=== PATIENT | female | born 1980 | race Two or more races ===

== ENCOUNTER 2017-10-06 08:30 | Outpatient (CLI) | payer OTHER ==
[~2017-10-06 08:30] MED LIST: PRENATAL1 TAB
== END 2017-10-06 08:40 | disposition home or self-care (01) ==
LOC: SONOGRAMA 08:30
DX: N30.00 Acute cystitis without hematuria (principal); E04.8 Other specified nontoxic goiter

== ENCOUNTER 2018-05-31 10:19 | Outpatient (CLI) | payer OTHER | END 2018-05-31 10:32 | disposition home or self-care (01) | LOC: MAMO-SONO 10:19 | DX: Z12.31 Encounter for screening mammogram for malignant neoplasm of breast (principal) ==

== ENCOUNTER 2018-10-08 08:44 | Outpatient (CLI) | payer OTHER | END 2018-10-08 08:55 | disposition home or self-care (01) | LOC: RAD 08:44 | DX: M54.2 Cervicalgia (principal); M54.6 Pain in thoracic spine; M54.5 Low back pain ==

== ENCOUNTER → 2019-03-18 | Outpatient (CLI) | payer OTHER | END | disposition home or self-care (01) | LOC: SONOGRAMA 03-17 10:45 | DX: E04.8 Other specified nontoxic goiter (principal) ==

== ENCOUNTER 2019-12-19 15:02 | Outpatient (CLI) | payer OTHER | END 2019-12-19 15:10 | disposition home or self-care (01) | LOC: MAMO-SONO 15:02 | PROVIDERS: ATTEND Obstetrics & Gynecology | DX: Z12.31 Encounter for screening mammogram for malignant neoplasm of breast (principal); N60.11 Diffuse cystic mastopathy of right breast ==

== ENCOUNTER 2020-08-09 13:18 | Outpatient (CLI) | payer OTHER | END 2020-08-09 13:30 | disposition home or self-care (01) | LOC: RAD 13:18 | PROVIDERS: ATTEND Chiropractor | DX: M99.01 Segmental and somatic dysfunction of cervical region (principal); M99.02 Segmental and somatic dysfunction of thoracic region; M99.03 Segmental and somatic dysfunction of lumbar region ==

== ENCOUNTER 2020-10-04 08:00 | Outpatient (CLI) | payer OTHER | END 2020-10-04 08:30 | disposition home or self-care (01) | LOC: PPH VACUNA 08:00 | DX: Z23 Encounter for immunization (principal) ==

== ENCOUNTER 2020-10-26 08:00 | Outpatient (CLI) | payer OTHER | END 2020-10-26 08:30 | disposition home or self-care (01) | LOC: PPH VACUNA 08:00 | DX: Z23 Encounter for immunization (principal) ==

== ENCOUNTER 2020-12-24 13:09 | Outpatient (CLI) | payer OTHER | END 2020-12-24 13:12 | disposition home or self-care (01) | LOC: MAMO-SONO 13:09 | PROVIDERS: ATTEND Obstetrics & Gynecology | DX: N60.11 Diffuse cystic mastopathy of right breast (principal) ==

== ENCOUNTER 2021-04-03 11:03 | Outpatient (CLI) | payer OTHER | END 2021-04-03 11:05 | disposition home or self-care (01) | LOC: SONOGRAMA 11:03 | DX: E03.8 Other specified hypothyroidism (principal) ==

== ENCOUNTER 2022-02-11 12:12 | Outpatient (CLI) | payer OTHER | END 2022-02-11 12:14 | disposition home or self-care (01) | LOC: MAMO-SONO 12:12 | PROVIDERS: ATTEND Obstetrics & Gynecology | DX: N60.11 Diffuse cystic mastopathy of right breast (principal) ==

== ENCOUNTER 2023-01-27 11:42 | Outpatient (CLI) | payer OTHER | END 2023-01-27 11:46 | disposition home or self-care (01) | LOC: SONOGRAMA 11:42 | PROVIDERS: ATTEND Internal Medicine | DX: Z01.810 Encounter for preprocedural cardiovascular examination (principal); E03.9 Hypothyroidism, unspecified; I10 Essential (primary) hypertension; M54.50 Low back pain, unspecified ==

== ENCOUNTER 2023-02-12 15:24 | Outpatient (CLI) | payer OTHER | END 2023-02-12 15:42 | disposition home or self-care (01) | LOC: MAMO-SONO 15:24 | PROVIDERS: ATTEND Obstetrics & Gynecology | DX: N60.11 Diffuse cystic mastopathy of right breast (principal); Z12.31 Encounter for screening mammogram for malignant neoplasm of breast ==

== ENCOUNTER 2023-06-11 08:37 | Emergency (ER) | payer OTHER ==
[~2023-06-11] VITALS: Ht 167.6 cm; Wt 72.6 kg
[2023-06-11] MEDS ORDERED: ADVIL DUAL ACT1 EACH PO (10:13)
== END 2023-06-11 10:18 | disposition home or self-care (01) ==
LOC: ER 08:37
DX: R07.9 Chest pain, unspecified (principal)

== ENCOUNTER 2023-09-15 12:03 | Outpatient (CLI) | payer OTHER ==
[~2023-09-15 12:03] MED LIST changes: +ADVIL DUAL ACT1 EACH PO
== END 2023-09-15 12:11 | disposition home or self-care (01) ==
LOC: RAD 12:03
PROVIDERS: ATTEND Internal Medicine
DX: M54.2 Cervicalgia (principal)

== ENCOUNTER 2024-02-26 14:19 | Outpatient (CLI) | payer OTHER | END 2024-02-26 14:27 | disposition home or self-care (01) | LOC: MAMO-SONO 14:19 | PROVIDERS: ATTEND Obstetrics & Gynecology | DX: N60.11 Diffuse cystic mastopathy of right breast (principal) ==

== ENCOUNTER 2024-05-16 12:07 | Outpatient (CLI) | payer OTHER | END 2024-05-16 12:31 | disposition home or self-care (01) | LOC: SONOGRAMA 12:07 | PROVIDERS: ATTEND Obstetrics & Gynecology | DX: E04.1 Nontoxic single thyroid nodule (principal) ==